=== PATIENT | male | born 1950 | race Caucasian/White ===

== ENCOUNTER 2016-11-22 19:08 | Emergency (ER) | payer OTHER ==
--- NOTE | 2016-11-22 19:22 | DR.HYPER ---
HPI - Time Seen Time seen: 19:30 - HPI Comment HPI Comment: PATIENT IS IS 66YR OLD MALE IN ED VIA EMS WITH WEAKNESS, MUSCLE CRAMPS AND DIZZINESS. EXPOSE TO HEAT 2 DAYS AGO AND HAVE POOR INTAKE. - Complaint Chief Complaint Doctors Comments: GENERALIZE WEAKNESS, MUSCLE ACHES AND MALAISE TIMES 2 DAYS. - Reviewed Nurses Notes Review: Yes - Source History Provided: Patient - Mode of arrival Mode of Arrival: Stretcher - Context Context:Exposure to: Other (DID YARD WORK IN THE HIT ON ) Context: Symptoms: Headache, Fatigue, Dizzy, Cramps, Feeling hot - Severity Severity: Moderate - Modiftying factors Modifying factors: Nothing - Associated signs and symptoms Associated Signs and Symptoms: Nausea ROS - Review of Systems Constitutional: No Symptoms Reported Eyes: No Symptoms Reported ENTM: No Symptoms Reported Respiratoy: No Symptoms Reported Cardiovascular: No Symptoms Reported Gastrointestinal/Abdominal: No Symptoms Reported Genitourinary: No Symptoms Reported Neurological: No Symptoms Reported Musculoskeletal: No Symptoms Reported Integumentary: No Symptoms Reported Hematologic/Lymphatic: No Symptoms Reported Endocrine: No Symptoms Reported All Other Systems: Reviewed and Negative PE - Vital Signs Vital Signs: Pulse Resp BP Pulse Ox 11/22/16 19:12 68 20 134/77 99 - General Limitations: No Limitations General Appearance: Alert - Head Head Exam: Normal Inspection - Eyes Eye exam: Normal Appearance - ENT ENT Exam: Normal External Ear Exam External Ear Exam: Normal External Inspection TM/Canal Exam: Bilateral Normal Mouth Exam: Normal Inspection Teeth Exam: Normal Inspection Throat Exam: Normal Inspection - Neck Neck Exam: Normal Inspection, Trachea Midline - Chest Chest Inspection: Symmetric Chest Wall Rise - Respiratory Respiratory Exam: Normal Lung Sounds Bilat Respiratory Exam: Bilateral Clear to Auscultation - Cardiovascular Cardiovascular Exam: Regular Rate, Normal Rhythm, Normal Heart Sounds - Abdominal Exam Abdominal Exam: Normal Bowel Sounds, Soft. negative: Tenderness - Extremities Extremities Exam: Normal Inspection - Back Back Exam: Normal Inspection - Neurological Neurological Exam: Alert, Oriented X3 Speech: Fluid Speech MDM - Differential Diagnosis Differiential Diagnosis: Dehydration, Heat cramps, Heat exhaustion, Heat stroke Course - Treatment Treatment: SEE ORDERS. - Education/Counseling Education/Counseling: Patient, Education Educated On: Diagnosis, Needs for Follow Up ROR - Labs Reviewed Laboratory Results Reviewed?: Yes Result Diagrams: 11/22/16 19:52 11/22/16 19:52 Laboratory: WBC 5.0 X10^3/uL (3.6-10.0) 11/22/16 19:52 RBC 4.77 X10^6/uL (4.7-6.0) 11/22/16 19:52 Hgb 13.8 g/dL (13.5-18.0) 11/22/16 19:52 Hct 40.5 % (42.0-54.0) L 11/22/16 19:52 MCV 84.9 fL (80.0-100.0) 11/22/16 19:52 MCH 29.0 pg (27.0-34.0) 11/22/16 19:52 MCHC 34.2 g/dL (33.0-35.0) 11/22/16 19:52 RDW 14.4 % (11.6-16.5) 11/22/16 19:52 Plt Count 147 X10^3/uL (150.0-450.0) L 11/22/16 19:52 MPV 8.3 fL (7.4-11.0) 11/22/16 19:52 Neut % 47.5 % (42.0-75.0) 11/22/16 19:52 Lymph % 38.7 % (21.0-51.0) 11/22/16 19:52 Sumner % 8.8 % (0.0-13.0) 11/22/16 19:52 Eos % 4.1 % (0.9-2.9) H 11/22/16 19:52 Baso % 0.9 % (0.2-1.0) 11/22/16 19:52 Neut # 2.4 x10^3/uL (2.2-4.8) 11/22/16 19:52 Lymph # 1.9 X10^3/uL (1.3-2.9) 11/22/16 19:52 Sumner # 0.4 x10^3/uL (0.3-0.8) 11/22/16 19:52 Eos # 0.2 x10^3/uL (0.0-0.2) 11/22/16 19:52 Baso # 0.0 X10^3/uL (0.0-0.1) 11/22/16 19:52 Absolute Nucleated RBC 0.0 /100WBC 11/22/16 19:52 Sodium 141 mmol/L (136-145) 11/22/16 19:52 Corrected Sodium TNP 11/22/16 19:52 Potassium 4.7 mmol/L (3.5-5.1) 11/22/16 19:52 Chloride 106 mmol/L (98-107) 11/22/16 19:52 Carbon Dioxide 30.2 mmol/L (21-32) 11/22/16 19:52 BUN 16 mg/dL (7-18) 11/22/16 19:52 Creatinine 1.04 mg/dL (0.70-1.30) 11/22/16 19:52 Est GFR (MDRD) Af Amer > 60 (>60) 11/22/16 19:52 Est GFR (MDRD) Non-Af > 60 (>60) 11/22/16 19:52 Glucose 70 mg/dL (65-99) 11/22/16 19:52 Calcium 8.9 mg/dL (8.5-10.1) 11/22/16 19:52 Corrected Calcium 9.6 mg/dL (8.5-10.1) 11/22/16 19:52 Total Bilirubin 0.30 mg/dL (0.2-1.0) 11/22/16 19:52 AST 31 Units/L (15-37) 11/22/16 19:52 ALT 39 Units/L (12-78) 11/22/16 19:52 Alkaline Phosphatase 117 Units/L (46-116) H 11/22/16 19:52 Creatine Kinase 35 Units/L (39-308) L 11/22/16 19:52 CK-MB (CK-2) < 1.0 ng/mL (0-4.0) 11/22/16 19:52 CK/CKMB % Calc 2.9 % (<4) 11/22/16 19:52 Troponin I < 0.02 ng/mL (0-1.5) 11/22/16 19:52 Total Protein 6.9 g/dL (6.4-8.2) 11/22/16 19:52 Albumin 3.1 g/dL (3.4-5.0) L 11/22/16 19:52 Globulin 3.8 g/dL (2.5-4.5) 11/22/16 19:52 Albumin/Globulin Ratio 0.8 Ratio (1.1-2.1) L 11/22/16 19:52 - XRAY XRAY Interpreted by: Radiologist XRAY Findings: REPORT DISCUSS WITH PATIENT. - EKG Rhythm: NSR (EKG NOTED,) - Diagnosis Discharge Problem: Heat cramp, initial encounter, Dizziness, Dehydration - Discharge Plan Disposition: 01 HOME, SELF-CARE Condition: Stable - Follow ups/Referrals Follow ups/Referrals: NFD,None [Primary Care Provider] - 3 days - Instructions Instructions: Dizziness, [id number], Heat Illness-SportsMed Additional Instructions: RETURN TO ED IF WORSE.
[2016-11-22 19:25] VITALS: BP 134/77; BMI 23.0
[2016-11-22] MEDS ORDERED: NS 1000 ML 1,000 ML IV ONE (19:45)
[2016-11-22] MEDS ORDERED: NS 1000 ML 1,000 ML ONE (19:53)
[2016-11-22 19:59] LABS: BASOPHILS % (AUTO) 0.9 % (0.2-1.0); EOSINOPHILS # (AUTO) 0.2 x10^3/uL (0.0-0.2); EOSINOPHILS % (AUTO) 4.1 % (0.9-2.9); HEMATOCRIT 40.5 % (42.0-54.0); HEMOGLOBIN 13.8 g/dL (13.5-18.0); LYMPHOCYTES # (AUTO) 1.9 X10^3/uL (1.3-2.9); LYMPHOCYTES % (AUTO) 38.7 % (21.0-51.0); MEAN CORPUSCULAR HGB CONC 34.2 g/dL (33.0-35.0); MEAN CORPUSCULAR VOLUME 84.9 fL (80.0-100.0); MEAN PLATELET VOLUME 8.3 fL (7.4-11.0); MONOCYTES # (AUTO) 0.4 x10^3/uL (0.3-0.8); MONOCYTES % (AUTO) 8.8 % (0.0-13.0); NEUTROPHILS # (AUTO) 2.4 x10^3/uL (2.2-4.8); NEUTROPHILS % (AUTO) 47.5 % (42.0-75.0); PLATELET COUNT 147 X10^3/uL (150.0-450.0); RED BLOOD COUNT 4.77 X10^6/uL (4.7-6.0); RED CELL DISTRIBUTION WIDTH 14.4 % (11.6-16.5)
[2016-11-22 20:22] LABS: BLOOD UREA NITROGEN 16 mg/dL (7-18); CALCIUM 8.9 mg/dL (8.5-10.1); CARBON DIOXIDE 30.2 mmol/L (21-32); CHLORIDE 106 mmol/L (98-107); CREATININE 1.04 mg/dL (0.70-1.30); SODIUM 141 mmol/L (136-145); TROPONIN I < 0.02 ng/mL (0-1.5); eGFR BLACK RACES > 60 (>60); eGFR NON BLACK RACES > 60 (>60)
[2016-11-22 20:27] LABS: ALANINE AMINOTRANSFERASE 39 Units/L (12-78); ALBUMIN 3.1 g/dL (3.4-5.0); ALKALINE PHOSPHATASE 117 Units/L (46-116); ASPARTATE AMINO TRANSFERASE 31 Units/L (15-37); CKMB % 2.9 % (<4); COR CA(FOR HYPOALB) 9.6 mg/dL (8.5-10.1); CREATINE KINASE 35 Units/L (39-308); CREATINE KINASE MB < 1.0 ng/mL (0-4.0); TOTAL PROTEIN 6.9 g/dL (6.4-8.2)
[2016-11-22] MEDS ORDERED: TORADOL 30 MG VIAL IVP ONE (20:46)
[2016-11-22] MEDS ORDERED: TORADOL 30 MG VIAL ONE (21:18)
--- NOTE | 2016-11-22 22:21 | RAD ---
AP Chest Indication: Chest pain Comparison: None available Findings: The trachea is midline. The cardiac silhouette is unremarkable. Coarsening of the interstitium and m ild hyperexpansion suggests COPD. There is a linear opacity within the right lung apex potentially re presenting artifact from overlying material or scarring however correlation with followup PA and late ral chest radiograph is recommended to ensure stability/resolution. No pleural effusion pneumothorax. No acute osseous abnormality. Impression: See above. Reported By:
== END 2016-11-22 23:30 | disposition home or self-care (01) ==
LOC: ER 19:23
DX: E86.0 Dehydration (principal); T67.2XXA Heat cramp, initial encounter; R42 Dizziness and giddiness
CPT/HCPCS: 36415; 71010; 80053; 82550; 82553; 84484; 85025; 93005; 93010; 96365; 96374; 99283; J1885